=== PATIENT | female | born 1985 | race Caucasian/White ===

== ENCOUNTER 2019-06-03 04:51 | Outpatient (CLI) | payer MEDICAID ==
[2019-06-03 05:33] LABS: UDS - AMPHET NEGATIVE QUAL (NEGATIVE); UDS - BARB NEGATIVE QUAL (NEGATIVE); UDS - BENZO NEGATIVE QUAL (NEGATIVE); UDS - COCAINE NEGATIVE QUAL (NEGATIVE); UDS - OPIATE NEGATIVE QUAL (NEGATIVE); UDS - PCP NEGATIVE QUAL (NEGATIVE); UDS - THC NEGATIVE QUAL (NEGATIVE)
[2019-06-03 05:34] LABS: APPEARANCE CLOUDY (CLEAR); BACTERIA MODERATE /hpf (NEGATIVE); BILIRUBIN NEGATIVE (NEGATIVE); COLOR YELLOW (YELLOW); EPITHELIAL CELLS 0-5 /hpf (0-5); GLUCOSE NEGATIVE (NEGATIVE); KETONE LARGE mg/dL (NEGATIVE); NITRITE NEGATIVE (NEGATIVE); PROTEIN TRACE mg/dL (NEGATIVE); SPECIFIC GRAVITY 1.025 (1.005-1.020); UROBILINOGEN NORMAL (NORMAL)
[2019-06-04 06:08] LABS: RAPID PLASMA REAGIN Non Reactive (Non Reactive)
[2019-06-05 06:07] LABS: RUBELLA IGG 1.71 index (Immune >0.99)
== END 2019-06-03 09:45 | disposition home or self-care (01) ==
LOC: D.LDO 04:51
PROVIDERS: Student in an Organized Health Care Education/Training Program; ATTEND Obstetrics & Gynecology
DX: O26.899 Other specified pregnancy related conditions, unspecified trimester (principal)

== ENCOUNTER 2019-06-27 13:06 | Inpatient (IN) | payer OTHER ==
[~2019-06-27] VITALS: Ht 175.3 cm; Wt 86.6 kg
[2019-06-27 17:54] LABS: HEMATOCRIT 36.4 % (36.0-48.0); HEMOGLOBIN 11.7 g/dL (12-16); MCH 29.7 pg (26.0-34.0); MCHC 32.1 g/dL (31.0-37.0); MCV 92.4 fL (80.0-100.0); MEAN PLATELET VOLUME 9.3 fL (7.4-10.4); RBC 3.94 10x6/uL (4.00-5.40); RDW 13.7 % (11.5-14.5); WBC 11.3 10x3/uL (4.8-10.8)
[2019-06-27 18:08] LABS: APPEARANCE HAZY (CLEAR); COLOR YELLOW (YELLOW); SPECIFIC GRAVITY 1.015 (1.005-1.020)
[2019-06-27 18:09] LABS: BILIRUBIN NEGATIVE (NEGATIVE); EPITHELIAL CELLS 0-5 /hpf (0-5); GLUCOSE NEGATIVE (NEGATIVE); KETONE NEGATIVE (NEGATIVE); NITRITE NEGATIVE (NEGATIVE); PROTEIN NEGATIVE (NEGATIVE); RED CELLS - URINE 0-5 /hpf (0-5); UROBILINOGEN NORMAL (NORMAL)
[2019-06-27 18:10] LABS: BACTERIA MANY /hpf (NEGATIVE)
[2019-06-27 18:13] LABS: UDS - AMPHET NEGATIVE QUAL (NEGATIVE); UDS - BARB NEGATIVE QUAL (NEGATIVE); UDS - BENZO NEGATIVE QUAL (NEGATIVE); UDS - COCAINE NEGATIVE QUAL (NEGATIVE); UDS - OPIATE NEGATIVE QUAL (NEGATIVE); UDS - PCP NEGATIVE QUAL (NEGATIVE); UDS - THC NEGATIVE QUAL (NEGATIVE)
[2019-06-27] MEDS ORDERED: PRENAVITE1 TAB PO (18:14)
[2019-06-27 19:46] VITALS: BP 113/71; Ht 175.3 cm; Wt 86.6 kg
[2019-06-29 05:09] LABS: RAPID PLASMA REAGIN Non Reactive (Non Reactive)
--- NOTE | 2019-06-29 19:30 | NUR ---
rECEIVED REPORT FROM LUBA LANGE. PT IS LYING IN BED TREMBLING. SHE STATES SHE IS NERVOUS BUT SHE DOESN'T KNOW WHY. SHE HAS A SALINE LOCK IN HER RIGHT WRIST. BABY IS IN THE ROOM WELL SO.
[2019-06-29 20:00] VITALS: BP 127/643
--- NOTE | 2019-06-29 20:00 | NUR ---
PT IS DOING WELL IN HER ROOM. SHE HAS AN iv 20G IN THE LEFT WRIST. PT STATES THAT SHE CANNOT MOVE HER LEGS AND DOESN'T THINK SHE CAN WALK. THIS IS NOT DUE TO AN EPIDURAL. SHE IS STILL TREMBLING. SHE HAS EATEN DINNER WITH NO N/V. PT HEART TONES ARE NORMAL AND LUNGS CLEAR. NO BOWEL SOUNDS AT THIS TIME. NOT MUCH BLEEDING AT THIS TIME.
--- NOTE | 2019-06-29 22:00 | NUR ---
PT LAYING IN BED WITH NO NEW C/O. BABY IS IN THE ROOM. FOB HAD THE BABY ON THE COUCH WHILE HE WAS LAYING DOWN WATCHING TV. I ASKED IF HE THOUGHT HE'D BE FALLING ASLEEP B/C I'D PUT THE BABY IN THE CRIB IF HE NEEDED ME TO. I EXPLAINED HOW BABIES ARE AT RISK OF SUFFICATION IF SLEEPING IN BED WITH THEIR PARENTS. THEY BOTH VERBALIZED UNDERSTANDING.
--- NOTE | 2019-06-29 22:50 | NUR ---
PT GOT UP TO GO TO THE BATHROOM. IT TOOK MAX ASSIST OF A PERSON ON EACH SIDE HOLDING HER UP. PROBABLY DUE TO SWELLING ON THE RIGHT AND LEFT LABIA PT ACTS LIKE SHE CAN'T MOVE HER LEGS ON IN FRONT OF THE OTHER. IT TOOK MAX ENCOURAGEMENT THROUGH THIS PROCESS. PT VOIDED ON THE TOILET ALONG WITH HAVING TWO DIFFERENT BM'S. HER SO GOT HER INTO A WHEELCHAIR AFTER SHE WAS FINISHED ON THE TOILET. PT WAS GIVEN WARM CLOTHES TO CLEAN UP WITH. SHE HAS SMALL TO MOD BLEEDING.
--- NOTE | 2019-06-29 23:10 | NUR ---
PT MOVED TO ROOM 6. SHE WAS TAKEN BY WHEELCHAIR. SHE WAS MAX ASSIST TO GET BACK INTO BED. HER SO HAD TO LIFT UP HER LEGS TO THE TOP OF THE BED. THE FAMILY IS GETTING SETTLED INTO THE NEW ROOM. BABY IS IN THE ROOM WITH PARENTS. PT REQUESTED A SPRITE WHICH WAS TAKEN TO HER
--- NOTE | 2019-06-29 23:15 | NUR ---
CALLED MAINTENANCE PAINTER ASKING THAT SHE BRING FLAGYL FOR THIS PT.
--- NOTE | 2019-06-30 00:44 | NUR ---
CALLED CABLE INSTALLATION TECHNICIAN AGAIN ASKING FOR FLAGYL. SHE STATES SHE IS ON HER WAY.
--- NOTE | 2019-06-30 00:54 | NUR ---
ALEX STARTED. PT ASKED NOW FOR PAIN MEDS.
--- NOTE | 2019-06-30 02:22 | NUR ---
PT IS RESTING QUIETLY. IV FLAGYL FINISHED INFUSING. PT AWAKE AND ALERT. SHE STATES SHE IS FEELING BETTER. SHE IS MOVING HER LEGS AROUND IN BED. BABY IN ROOM. FOB HELPING WITH HIS CARE.
--- NOTE | 2019-06-30 04:03 | NUR ---
PT AND FAMILY SLEEPING WELL AT THIS TIME. NO C/O.
--- NOTE | 2019-06-30 05:47 | NUR ---
PT CONT TO SLEEP. NO C/O
--- NOTE | 2019-06-30 06:05 | NUR ---
PT AND SO ARE AWAKE. PT STATES THAT SHE SLEPT AND HAD NOT BEEN UP TO THE BR ALL NIGHT. I ASKED PT AND HER S0 TO PLEASE GET UP TO THE BR AND I WOULD BACK TO CHECK ON THEM. BABY IN ROOM.
[2019-06-30 07:04] LABS: BASOPHILS 0.2 % (0-2); EOSINOPHILS 0.5 % (0-7); HEMATOCRIT 30.4 % (36.0-48.0); HEMOGLOBIN 9.7 g/dL (12-16); IMMATURE GRANULOCYTES 0.7 % (0-5); MCH 29.3 pg (26.0-34.0); MCHC 31.9 g/dL (31.0-37.0); MCV 91.8 fL (80.0-100.0); MEAN PLATELET VOLUME 9.2 fL (7.4-10.4); MONOCYTES 6.8 % (2-11); NEUTROPHILS 71.8 % (40-80); PLATELET COUNT 337 10x3/uL (130-400); RBC 3.31 10x6/uL (4.00-5.40); WBC 16.4 10x3/uL (4.8-10.8)
[2019-06-30 07:24] VITALS: BP 103/56
--- NOTE | 2019-06-30 07:24 | NUR ---
RECEIVED PT LYING SUPINE IN BED. HOLDING . TAKEN PER [employer] FOR ASSESSMENT. PT STATES C/O PAIN TO PERINEUM AND ABDOMINAL CRAMPING. SL TO LEFT WRIST. SITE CLEAR. HRRR WITHOUT AUDIBLE MURMUR. BBS CLEAR. BS X 4. ABDOMEN SOFT/NON-DISTENDED. FUNDUS FIRM AT U/2. RUBRA LOCHIA SMALL AMT. NO CLOTS NOTED. MOD EDEMA NOTED TO LEFT LABIA. NEEG HOMANS' SIGN. PPP. NO EDEMA NOTED TO BLE. SR UP X 2. CALL LIGHT IN REACH. ICE PROVIDED TO PT AT PT REQUEST.
--- NOTE | 2019-06-30 08:52 | NUR ---
MOTRIN 600 MG GIVEN PO ORDERED FOR PT C/O CRAMPING AND PAIN TO PERINEUM. FLAGYL COMPLETED. SL FLUSHED WITH 10 ML NS. SITE CLEAR. PT AUGUSTIN WELL.
--- NOTE | 2019-06-30 09:00 | NUR ---
DR SUAZO VISITS WITH PT. VIEWS LAB RESULTS. ORDER RECEIVED.
--- NOTE | 2019-06-30 09:12 | NUR ---
PT UP TO SHOWER. PT AMBULATES WITHOUT DIFFICULTY. AUGUSTIN ACTIVITY WELL.
--- NOTE | 2019-06-30 09:45 | NUR ---
PT CALLS ON EMERGENCY BR LIGHT. THIS NURSE TO ROOM. PT STATES "I NEED HELP WITH A TOWEL". THIS NURSE ASSISTS PT WITH TOWEL. PT STATES "I NEED A BIG TOWEL THAT I CAN WRAP UP IN". PT INFORMED THAT HOSPITAL DOESN'T HAVE LARGE TOWELS. PT PROVIDED WITH SEVERAL TOWELS TO DRY OFF WITH. PT STATES CAN'T PICK LEGS UP TO WALK. PT ATTEMPTING TO MOVE WITH HIPS ONLY. PT ENCOURAGED TO BEND KNEES TO AMBULATE AND NOT USE HIPS ONLY. PT DEMONSTRATES UNDERSTANDING. PT MOVES WELL OUT OF SHOWER. ASSISTED PT WITH PERIPAD, PANTIES, PAJAMAS AND SOCKS. PT AMBULATES SLOWLY OUT INTO HALLWAY AFTER MUCH ENCOURAGEMENT. PT MOVES SLOWLY DOWN MOCTEZUMA USING HAND RAIL ASSISTANCE. PT WALKS TO NURSE'S STATION AND BACK TO ROOM WITHOUT ADDITIONAL ASSISTANCE. THIS NURSE TO ROOM. PT TO BED PER SELF. AUGUSTIN ACTIVITY WELL.
[2019-06-30 11:50] VITALS: BP 118/56
--- NOTE | 2019-06-30 11:50 | NUR ---
PT SITTING IN SEMI-SOTO'S POSITION IN BED. AWAKE. VSS. PT DENIES C/O OR NEEDS. PT ENCOURAGED TO AMBULATE AGAIN AFTER LUNCH. PT VERBALIZES UNDERSTANDING.
--- NOTE | 2019-06-30 12:32 | NUR ---
SITTING ON EDGE OF BED BOTTLE FEEDING . POC DISCUSSED WITH PT, VERBALIZES UNDERSTANDING AND DENIES NEEDS. BED IN LOW POSITION WITH SRUP X2. CALL LIGHT AND PHONE WITHIN REACH. WILL CONTINUE TO MONITOR.
[2019-06-30 13:33] LABS: BASOPHILS 0.1 % (0-2); EOSINOPHILS 0.5 % (0-7); HEMATOCRIT 33.1 % (36.0-48.0); HEMOGLOBIN 10.4 g/dL (12-16); IMMATURE GRANULOCYTES 0.7 % (0-5); LYMPHOCYTES 15.9 % (15-50); MCH 29.2 pg (26.0-34.0); MCHC 31.4 g/dL (31.0-37.0); MEAN PLATELET VOLUME 9.4 fL (7.4-10.4); MONOCYTES 4.3 % (2-11); NEUTROPHILS 78.5 % (40-80); PLATELET COUNT 382 10x3/uL (130-400); RBC 3.56 10x6/uL (4.00-5.40); RDW 14.2 % (11.5-14.5); WBC 15.2 10x3/uL (4.8-10.8)
--- NOTE | 2019-06-30 15:21 | NUR ---
MOTRIN GIVEN FOR C/O ABD CRAMPING AND PERINEAL STINGING 11/15. L FA PIV FLUSHES WITHOUT DIFFICULTY, NO S/S OF INFILTRATION NOTED. FLAGYL TO L FA PIV PER ORDER. ICE WATER AND ICE PROVIDED PER PT REQUEST. DENIES ADDITIONAL NEEDS. INFANT IN FOB'S ARMS. BED IN LOW POSITION WITH SRUP X2. CALL LIGHT AND PHONE WITHIN REACH. WILL CONTINUE TO MONITOR.
--- NOTE | 2019-06-30 16:10 | NUR ---
PAIN REASSESSMENT COMPLETED, 3-09/15. DENIES NEEDS. CURRENTLY WATCHING TV. BED IN LOW POSITION WITH SRUP X2. CALL LIGHT AND PHONE WITHIN REACH. WILL CONTINUE TO MONITOR.
--- NOTE | 2019-06-30 17:27 | NUR ---
UNIT OF PRBC COMPLETED. NS STARTED AT 100ML/HR TO INFUSE REMAINING BLOOD THROUGH IV TUBING.
--- NOTE | 2019-06-30 17:36 | NUR ---
ROUNDS MADE, PREPARING TO EAT EVENING MEAL. DENIES NEEDS AT THIS TIME. INFANT RESTING QUIETLY IN OPEN CRIB. SIGNIFICANT OTHER AT BEDSIDE, SUPPORTIVE AND ATTENTIVE TO PT AND NEEDS. BED IN LOW POSITION WITH SRUP X2. CALL LIGHT AND PHONE WITHIN REACH. WILL CONTINUE TO MONITOR.
--- NOTE | 2019-06-30 18:24 | NUR ---
SITTING UP IN HIGH FOWLERS POSITION WATCHING TV AND CONVERSING WITH SIGNIFICANT OTHER. DENIES NEEDS. TRAY REMOVED FROM ROOM PER PT REQUEST. DENIES NEEDS. BED IN LOW POSITION WITH SRUP X2. CALL LIGHT AND PHONE WITHIN REACH.
--- NOTE | 2019-06-30 19:10 | NUR ---
RECEIVED SHIFT REPORT FROM NENO SOOD RN, PT HOLDING , FOB LAYING IN BED WITH PT, INFORMED PTG THAT I WILL BE BACK SHORTLY TO DO ASSESSMENT, PT VERBALIZES UNDERSTANDING, DENIES PAIN, REQUESTED AND PROVIDED CUP OF ICE, DENIES FURTHER NEEDS, BED IN LOW POSITION, SIDE RAILS X 2, CALL LIGHT IN REACH
[2019-06-30 19:30] VITALS: BP 115/65
--- NOTE | 2019-06-30 19:30 | NUR ---
ASSESSMENT PER FLOW SHEET, VS OBTAINED, FF, ML, U/2, PT REPORTS LIGHT BLEEDING WITH NO CLOTS, DOING WARM WATER KIARA CARE INST, DENIES FLATUS, NO BM AND VOIDING WITH NO DIFFICULTY, PT DENIES PAIN, PT INFORMED THAT SHE WILL BE MOVED TO [facility], PT VERBALIZES UNDERSTANDING, DENIES NEEDS, INFANT IN OPEN CRIB CART AND FOB AT BEDSIDE
--- NOTE | 2019-06-30 20:38 | NUR ---
PT UP IN BR, REPORTS VOIDING WITH NO DIFFICULTY, DENIES NEEDS OR PAIN, PT INFORMED THAT SHE WILL NOT BE MOVING TO [facility] AT THIS TIME, PT VERBALIZES UNDERSTANDING, DENIES NEEDS OR PAIN, IN OPEN CRIB CART AND FOB IN ROOM
--- NOTE | 2019-06-30 20:50 | NUR ---
REPORT GIVEN TO APOLLO ROGERS RN TO TAKE OVER CARE
--- NOTE | 2019-06-30 21:30 | NUR ---
PATIENT LYING IN BED HOLDING . DENIES PAIN OR NEEDS AT THIS TIME. SIGNIFICANT OTHER REMAINS AT BEDSIDE FOR SUPPORT. PT INFORMED THAT I WOULD BE TAKING OVER HER CARE FROM LUBA LANE. PT VERBALIZES UNDERSTANDING. WILL CONTINUE TO MONITOR.
--- NOTE | 2019-06-30 23:24 | NUR ---
MOTRIN ADMINISTERED PER PT REQUEST, SEE EMAR. PT DENIES OTHER NEEDS. BED REMAINS LOCKED IN LOW POSITION. SIDE RAILS UPX2, CALL FERNANDES AND TRAY TABLE IN REACH. CELIA CONTINUE TO MONITOR
--- NOTE | 2019-07-01 01:12 | NUR ---
PATIENT LYING IN BED, REMAINS IN OPEN CRIB AT BEDSIDE. PT DENIES NEEDS. WILL CONTINUE TO MONITOR
--- NOTE | 2019-07-01 03:45 | NUR ---
PT RESTING QUIETLY WITH EYES CLOSED, RESPIRATIONS EVEN AND NON LABORED. NO DISTRESS NOTED. WILL CONTINUE TO MONITOR.
--- NOTE | 2019-07-01 06:15 | NUR ---
PT AWOKE UPON ENTERING THE ROOM, DENIES PAIN OR NEEDS. WILL CONTINUE TO MONITOR.
--- NOTE | 2019-07-01 07:21 | NUR ---
PT SLEEPING, SHIFT REPORT GIVEN AT THE NURSES STATION
--- NOTE | 2019-07-01 08:30 | NUR ---
AM ASSESSMENT COMPLETED CHARTED ON FLOWSHEET. PT RATES HER PAIN AT 5/10 AND IS AWARE SHE CAN HAVE MOTRIN NOW BUT STATES SHE WILL CALL WHEN SHE IS READY TO TAKE SOMETHING. FUNDUS FIRM AT U/U WITH SCANT BLEEDING TO KIARA PAD AND SHE DENIES CLOTS WITH VOIDS. IN CRIB AT BEDSIDE WITH SIG OTHER ON COUCH. SIDE RAILS UP X 2 WITH CALL LIGHT IN REACH.
--- NOTE | 2019-07-01 10:48 | NUR ---
MOTRIN GIVEN SCANNED TO EMAR FOR PT COMPLAINT OF PAIN THAT SHE RATES AT 6/10. INFANT TAKEN TO NBN WITH NURSERY NURSE FOR PEDI ASSESSMENT. PT DENIES ANY OTHER NEEDS AT THIS TIME.
--- NOTE | 2019-07-01 13:30 | NUR ---
large cup of ice per request. no other needs at this time. call light in reach with side rails up x 2.
--- NOTE | 2019-07-01 15:00 | NUR ---
PT RATES PAIN AT 3/10, DENIES NEEDS AT THIS TIME AND STATES SHE IS WAITING CARRIER, PT PROVIDED WITH PT BAG FOR BELONGINGS PER HER REQUEST.
--- NOTE | 2019-07-01 16:30 | NUR ---
WRITTEN & VERBAL D/C INSTRUCTIONS REVIEWED W/ PT. PT VOICED UNDERSTANDING OF ALL INSTRUCTIONS.
--- NOTE | 2019-07-01 17:34 | NUR ---
pt given pain meds see emar.
--- NOTE | 2019-07-01 18:10 | NUR ---
pt a&a holding at this time.
--- NOTE | 2019-07-01 20:00 | NUR ---
PT'S FAMILY PRESENT WITH CARSEAT. PT AND GRANDMOTHER PLACE BABY IN CARSEAT. PT TRANSPORTED OFF UNIT VIA W/C. GRANDMOTHER CARRYING BABY IN CARSEAT. PT TO BE DRIVEN HOME BY FAMILY.
--- NOTE | 2019-07-01 21:08 | MORECARE ---
CASE MANAGEMENT DISCHARGE SUMMARY PATIENT: MARIO CALVIN UNIT: [id number] ADM DATE: 06/27/19 AGE: 33 : 85 SEX: F ROOM/BED: D.1278 AUTHOR: MAHOGANY ZIMMERMAN PHYSICIAN: REFERRING PHYSICIAN: ENRIQUE SUAZO DO DATE OF SERVICE: 07/01/19 Discharge Plan Patient Name: MARIO CALVIN Facility: [facility]:[place] : 1985 Planned Disposition: Anticipated Discharge Date: Discharge Date: Expected LOS: Initial Reviewer: [email or web address] Initial Review Date: 06/30/2019 Generated: 07/01/19 10:08 pm Comments DCP- Discharge Planning Updated by [email or web address]: Kelin Ness on 07/01/19 8:[address] late entry 06/30/19 DC PLAN: MOB states she plans taking infant home. Address: [address] [place] [address]. DC NEEDS: Denies any needs TRANSPORTATION: private vehicle friend will transport to appointments WIC: No appointment yet but she has [facility] MEDICAID: MOB states she has filled out paperwork CAR SEAT: I will " someone is bringing her one" FEEDING PLAN: Plans formula feed. MOB states will use bottled water with formula. BABY NAME: Trev Hobson FOB: Jeff Hobson -(sleeping in room) MOB: Mario Calvin ROLL PRESS OPERATOR: [facility] in [place] CARE: MOB states she had care throughout SUPPLIES: MOB states has clothes, bottles, diapers, a place for him to sleep and all he needs WATER SOURCE: [facility] HEAT SOURCE: Electric. MOB states they have smoke alarms in the home AIR CONDITIONING: yes CM met with MOB after obtaining verbal consent regarding dc planning/needs. MOB to return to her home with . States home environment is safe. She states in addition to herself, two other people live in the home. MOB states she will have transportation to follow up appointments. MOB states this is her third child. MOB states that she does not have custody of her other children. Ages are 14year old and 10 yr old girl and boy. MOB states that her daughter lives with MOB brother. MOB states her other son lives with his father. KEVEN states that she and her friend both smoke but it is outside the home. Denies any drug or etoh use in the home. KEVEN states that she plans on finding employment after recovering from delivery. KEVEN states that she hopes to have friends care for child while she is working. CM will continue to follow and assist as needed with dc planning/needs. Patient Name: MARIO CALVIN Page [id number] at 2108 All edits/amendments must be made on the electronic document DICTATION DATE: 07/01/192107 TELECOMMUNICATIONS CLERK: MARGARITA 07/01/192107 RPT#: [id number] DC DATE: STATUS: ADM IN [facility] [address] [place] [address] END OF REPORT
--- NOTE | 2019-07-04 08:51 | MORECARE ---
CASE MANAGEMENT DISCHARGE SUMMARY PATIENT: MARIO CALVIN UNIT: [id number] ADM DATE: 06/27/19 AGE: 33 : 85 SEX: F ROOM/BED: D.1278 AUTHOR: MAHOGANY ZIMMERMAN PHYSICIAN: REFERRING PHYSICIAN: ENRIQUE SUAZO DO DATE OF SERVICE: 07/04/19 Discharge Plan Patient Name: MARIO CALVIN Facility: [facility]:[place] : 1985 Planned Disposition: Anticipated Discharge Date: Discharge Date: 07/01/2019 Expected LOS: Initial Reviewer: [email or web address] Initial Review Date: 06/30/2019 Generated: 07/04/19 9:50 am Comments DCP- Discharge Planning Updated by [email or web address]: Kelin Ness on 07/01/19 8:[address] late entry 06/30/19 DC PLAN: MOB states she plans taking home. Address: [address] [place] [address]. DC NEEDS: Denies any needs TRANSPORTATION: private vehicle friend will transport to appointments WIC: No appointment yet but she has [facility] MEDICAID: MOB states she has filled out paperwork CAR SEAT: I will " someone is bringing her one" FEEDING PLAN: Plans formula feed. MOB states will use bottled water with formula. BABY NAME: Trev Hobson FOB: Jeff Hobson -(sleeping in room) MOB: Mario Calvin DENTURE CONTOUR WIRE SPECIALIST: [facility] in [place] CARE: MOB states she had care throughout SUPPLIES: MOB states has clothes, bottles, diapers, a place for him to sleep and all he needs WATER SOURCE: city HEAT SOURCE: Electric. MOB states they have smoke alarms in the home AIR CONDITIONING: yes CM met with MOB after obtaining verbal consent regarding dc planning/needs. MOB to return to her home with . States home environment is safe. She states in addition to herself, two other people live in the home. MOB states she will have transportation to follow up appointments. MOB states this is her third child. MOB states that she does not have custody of her other children. Ages are 14year old and 10 yr old girl and boy. MOB states that her daughter lives with MOB brother. MOB states her other son lives with his father. KEVEN states that she and her friend both smoke but it is outside the home. Denies any drug or etoh use in the home. KEVEN states that she plans on finding employment after recovering from delivery. KEVEN states that she hopes to have friends care for child while she is working. CM will continue to follow and assist as needed with dc planning/needs. Last DP export: 07/01/19 8:08 p Patient Name: MARIO CALVIN Page [id number] at 0851 All edits/amendments must be made on the electronic document DICTATION DATE: 07/04/1950 FELLER OPERATOR: MARGARITA 07/04/1950 RPT#: [id number] DC DATE:07/01/19 STATUS: DIS IN [facility] [address] [place] [address] END OF REPORT
== END 2019-07-01 20:00 | disposition home or self-care (01) | DRG 806 ==
LOC: D.LD 13:06
PROVIDERS: ADMIT Student in an Organized Health Care Education/Training Program; ATTEND Student in an Organized Health Care Education/Training Program
PROC: 3E0P7VZ Introduction of Hormone into Female Reproductive, Via Natural or Artificial Opening (ICD-10-PCS; 2019-06-28)
PROC: 3E033VJ Introduction of Other Hormone into Peripheral Vein, Percutaneous Approach (ICD-10-PCS; 2019-06-28)
PROC: 10D07Z6 Extraction of Products of Conception, Vacuum, Via Natural or Artificial Opening (ICD-10-PCS; principal; 2019-06-29)
PROC: 10907ZC Drainage of Amniotic Fluid, Therapeutic from Products of Conception, Via Natural or Artificial Opening (ICD-10-PCS; 2019-06-29)
DX: O99.824 Streptococcus B carrier state complicating childbirth (principal); O98.32 Other infections with a predominantly sexual mode of transmission complicating childbirth; Z37.0 Single live birth; Z3A.40 40 weeks gestation of pregnancy; A60.00 Herpesviral infection of urogenital system, unspecified; O69.81X0 Labor and delivery complicated by cord around neck, without compression, not applicable or unspecified